=== PATIENT | female | born 1965 | race African-American/Black ===

== ENCOUNTER 2017-04-07 11:49 | Emergency (ER) | payer OTHER ==
[~2017-04-07] VITALS: Ht 167.6 cm; Wt 63.5 kg
--- NOTE | 2017-04-07 12:14 | Emergency Room Report ---
History of Present Illness General Chief Complaint: Altered Mental Status Source: EMS (CLARK VILLALOBOS D.O.) Present Illness HPI Patient sent by paramedics Patient was brought in after friends had reported the patient had taken an unknown amount of mushrooms Unknown time and duration she appeared to be more difficult to arouse Patient herself is essentially minimally responsive to physical stimuli Appropriately protecting airway There was no reports of any vomiting or diarrhea Patient herself again nonverbal at this time and limited history of present illness (CLARK VILLALOBOS D.O.) Allergies: Coded Allergies: No Known Allergies (Unverified , 04/07/17) Patient History Limited by: medical condition Past Medical History: see triage record Pertinent Family History: unable to obtain Reviewed Nursing Documentation: PMH: Agreed, PSxH: Agreed (CLARK VILLALOBOS D.O.) Nursing Documentation-PMH Past Medical History: No History, Except For History Of Psychiatric Problem: Yes - Substance Abuse (CLARK VILLALOBOS D.O.) Review of Systems All Other Systems: limited - Other than the ones mentioned in the history of present illness all others are reviewed however they do stay limited due to the patient's mental status (CLARK VILLALOBOS D.O.) Physical Exam Vital Signs Date Time Temp Pulse Resp B/P (MAP) Pulse Ox O2 Delivery O2 Flow Rate FiO2 04/07/17 11:41 98.1 90 16 110/73 99 Room Air Sp02 EP Interpretation: reviewed, normal General Appearance: no apparent distress Head: normocephalic, atraumatic Eyes: bilateral eye other - Bilateral pupils appear to be small 2 mm sluggishly reactive, ENT: normal pharynx Neck: supple Respiratory: lungs clear, normal breath sounds Cardiovascular #1: regular rate, rhythm, no edema Gastrointestinal: non tender, soft Musculoskeletal: other - Patient has no follow commands however no obvious focal deficit she does withdraw bilaterally from physical stimuli in both upper extremity, Neurologic: responsive - To physical stimuli, otherwise minimal responsiveness , patient is not verbally responsive Skin: normal color, no rash Lymphatic: no adenopathy (CLARK VILLALOBOS D.O.) Medical Decision Making Diagnostic Impression: Primary Impression: Drug overdose Qualified Codes: T50.901A - Poisoning by unspecified drugs, medicaments and biological substances, accidental (unintentional), initial encounter Additional Impressions: Cocaine abuse Alcohol abuse Labs Test 04/07/17 11:57 04/07/17 12:45 White Blood Count 5.6 K/UL (4.8-10.8) Red Blood Count 4.54 M/UL (4.20-5.40) Hemoglobin 12.4 G/DL (12.0-16.0) Hematocrit 39.0 % (37.0-47.0) Mean Corpuscular Volume 86 FL (80-99) Mean Corpuscular Hemoglobin 27.2 PG (27.0-31.0) Mean Corpuscular Hemoglobin Concent 31.7 G/DL (32.0-36.0) Red Cell Distribution Width 13.2 % (11.6-14.8) Platelet Count 362 K/UL (150-450) Mean Platelet Volume 5.9 FL (6.5-10.1) Neutrophils (%) (Auto) 43.6 % (45.0-75.0) Lymphocytes (%) (Auto) 47.2 % (20.0-45.0) Monocytes (%) (Auto) 5.2 % (1.0-10.0) Eosinophils (%) (Auto) 2.1 % (0.0-3.0) Basophils (%) (Auto) 1.9 % (0.0-2.0) Sodium Level 145 MMOL/L (136-145) Potassium Level 3.3 MMOL/L (3.5-5.1) Chloride Level 109 MMOL/L (98-107) Carbon Dioxide Level 24 MMOL/L (21-32) Anion Gap 12 (5-15) Blood Urea Nitrogen 9 mg/dL (7-18) Creatinine 0.7 MG/DL (0.55-1.30) Estimat Glomerular Filtration Rate > 60 mL/min (>60) Glucose Level 86 MG/DL (74-106) Calcium Level 9.2 MG/DL (8.5-10.1) Total Bilirubin 0.3 MG/DL (0.2-1.0) Aspartate Amino Transf (AST/SGOT) 34 U/L (15-37) Alanine Aminotransferase (ALT/SGPT) 36 U/L (12-78) Alkaline Phosphatase 93 U/L (46-116) Total Protein 8.1 G/DL (6.4-8.2) Albumin 3.9 G/DL (3.4-5.0) Globulin 4.2 g/dL Albumin/Globulin Ratio 0.9 (1.0-2.7) Salicylates Level 1.9 ug/mL (2.8-20) Acetaminophen Level < 10 MCG/ML (10-30) Serum Alcohol 291 mg/dL Urine Color Pale yellow Urine Appearance Clear Urine pH 5 (4.5-8.0) Urine Specific [place] 1.010 (1.005-1.035) Urine Protein Negative (NEGATIVE) Urine Glucose (UA) Negative (NEGATIVE) Urine Ketones Negative (NEGATIVE) Urine Occult Blood Negative (NEGATIVE) Urine Nitrite Negative (NEGATIVE) Urine Bilirubin Negative (NEGATIVE) Urine Urobilinogen Normal MG/DL (0.0-1.0) Urine Leukocyte Esterase Negative (NEGATIVE) Urine HCG, Qualitative Negative Urine Opiates Screen Negative (NEGATIVE) Urine Barbiturates Screen Negative (NEGATIVE) Phencyclidine (PCP) Screen Negative (NEGATIVE) Urine Amphetamines Screen Negative (NEGATIVE) Urine Benzodiazepines Screen Negative (NEGATIVE) Urine Cocaine Screen Positive (NEGATIVE) Urine Marijuana (THC) Screen Negative (NEGATIVE) (CLARK VILLALOBOS D.O.) ER Course Received signout from Dr Villalobos at 230pm At 430pm, patient alert and oriented, ate sandwich, ambulating in ED Utox + for cocaine. ETOH level was elevated. Clinically sober now. Patient only endorses cocaine and ETOH Will DC home (DEVAN CALDERON M.D.) Last Vital Signs Date Time Temp Pulse Resp B/P (MAP) Pulse Ox O2 Delivery O2 Flow Rate FiO2 04/07/17 11:41 98.1 90 16 110/73 99 Room Air (CLARK VILLALOBOS D.O.) Status: improved (DEVAN CALDERON M.D.) Disposition: HOME, SELF-CARE CLARK VILLALOBOS D.O. Apr 07, 2017 12:14 DEVAN CALDERON M.D. Apr 07, 2017 16:23
[2017-04-07] MEDS ORDERED: Naloxone 1mg/ml 2ml IM ONE (12:15)
[2017-04-07 12:39] LABS: BASOPHILS % (AUTO) 1.9 % (0.0-2.0); EOSINOPHILS % (AUTO) 2.1 % (0.0-3.0); LYMPHOCYTES % (AUTO) 47.2 % (20.0-45.0); MEAN CORPUSCULAR HEMOGLOBIN 27.2 PG (27.0-31.0); MEAN CORPUSCULAR HGB CONC 31.7 G/DL (32.0-36.0); MEAN CORPUSCULAR VOLUME 86 FL (80-99); MEAN PLATELET VOLUME 5.9 FL (6.5-10.1); MONOCYTES % (AUTO) 5.2 % (1.0-10.0); NEUTROPHILS % (AUTO) 43.6 % (45.0-75.0); PLATELET COUNT 362 K/UL (150-450); RED BLOOD COUNT 4.54 M/UL (4.20-5.40); RED CELL DISTRIBUTION WIDTH 13.2 % (11.6-14.8); WHITE BLOOD COUNT 5.6 K/UL (4.8-10.8)
[2017-04-07 12:50] LABS: ALANINE AMINOTRANSFERASE 36 U/L (12-78); ALBUMIN/GLOBULIN RATIO 0.9 (1.0-2.7); ALCOHOL 291 mg/dL; ANION GAP 12 (5-15); ASPARTATE AMINO TRANSFERASE 34 U/L (15-37); CALCIUM 9.2 MG/DL (8.5-10.1); CARBON DIOXIDE 24 MMOL/L (21-32); CHLORIDE 109 MMOL/L (98-107); CREATININE 0.7 MG/DL (0.55-1.30); GLOMERULAR FILTRATION RATE > 60 mL/min (>60); POTASSIUM 3.3 MMOL/L (3.5-5.1); SODIUM 145 MMOL/L (136-145); TOTAL PROTEIN 8.1 G/DL (6.4-8.2)
[2017-04-07 13:02] VITALS: BP 99/69
[2017-04-07 13:04] LABS: ACETAMINOPHEN < 10 MCG/ML (10-30)
[2017-04-07 14:00] LABS: APPEARANCE,URINE CLEAR; KETONES,URINE NEGATIVE (NEGATIVE); LEUKOCYTE ESTERASE ,URINE NEGATIVE (NEGATIVE); NITRITE,URINE NEGATIVE (NEGATIVE); PH,URINE 5 (4.5-8.0); PROTEIN,URINE NEGATIVE (NEGATIVE); UROBILINOGEN,URINE NORMAL MG/DL (0.0-1.0)
[2017-04-07 14:02] VITALS: BP 100/75
[2017-04-07 15:15] VITALS: BP 104/81
[2017-04-07 16:25] VITALS: BP 103/69
[2017-04-07 16:30] VITALS: BP 103/69
--- NOTE | 2017-04-08 09:54 | Diagnostic Imaging Report ---
Indication: Chest pain Technique: One view of the chest Comparison: none Findings: Calcified granuloma projects over the left midlung. There are old healed bilateral rib fracture deformities. The heart size is normal. The lungs and pleural spaces are clear. There is an old ununited right distal clavicular fracture Impression: No acute process Evidence of old granulomatous disease Chronic post traumatic bony changes as described
== END 2017-04-07 16:30 | disposition home or self-care (01) ==
LOC: EDBD 11:49 → EMR 14:59
DX: T50.991A Poisoning by other drugs, medicaments and biological substances, accidental (unintentional), initial encounter (principal); R41.82 Altered mental status, unspecified; Y92.89 Other specified places as the place of occurrence of the external cause; F14.10 Cocaine abuse, uncomplicated; F10.10 Alcohol abuse, uncomplicated
CPT/HCPCS: 36415; 71010; 80053; 80300; 80329; 81003; 81025; 82962; 85025; 96360; 96372; 99284; J2310